=== PATIENT | female | born 1980 ===

== ENCOUNTER → 2019-03-03 | Outpatient (CLI) | payer OTHER ==
--- NOTE | 2019-03-03 09:15 | Diagnostic Imaging Report ---
PROCEDURE: US Gallbladder. TECHNIQUE: Multiple real-time grayscale images were obtained over the right upper quadrant in various projections. INDICATION: Epigastric pain. FINDINGS: The liver is normal in size at 15.4 cm. No discrete mass or malignant appearing microcalcifications are seen. Portal vein is patent and shows normal direction of flow. Gallbladder contains multiple mobile stones. No wall thickening or biliary ductal dilatation is seen. Pancreas is unremarkable. Aorta is nonaneurysmal. IVC is patent. The right kidney is without evidence of calculi or hydronephrosis. There is no ascites. IMPRESSION: Cholelithiasis without evidence of acute cholecystitis. Dictated by: Dictated on workstation # [id number]
== END | disposition home or self-care (01) ==
LOC: RAD 08:30
PROVIDERS: ATTEND Nurse Practitioner Primary Care
DX: K80.20 Calculus of gallbladder without cholecystitis without obstruction (principal)
CPT/HCPCS: 76705

== ENCOUNTER → 2019-04-14 | Outpatient (CLI) | payer OTHER ==
[~2019-04-14] MED LIST: CLAR-19 PO; LEVO100T7 PO; PANT40TA3 PO; VITA1CAP62 PO
== END | disposition home or self-care (01) ==
LOC: PREOP 10:45
PROVIDERS: ATTEND Surgery
DX: Z01.818 Encounter for other preprocedural examination (principal)